=== PATIENT | female | born 1990 | race Caucasian/White ===

== ENCOUNTER 2016-11-09 16:23 | Outpatient (CLI) | payer OTHER ==
--- NOTE | 2016-11-09 17:36 | Non Stress Test Report ---
Non Stress Test Datetime Report Generated by CPN: 11/09/2016 17:36 DEMOGRAPHIC EGA NST: 35.5 INDICATION Indication for Study: Diabetes Mellitus; Ordered by Provider MONITORING Monitor Explained: Monitor Explained; Test Explained; Patient Verbalized Understanding Time on Monitor: 11/09/2016 16:40 Time off Monitor: 11/09/2016 17:21 NST Duration: 41 NST INTERVENTIONS NST Interventions: PO Hydration; Reposition Patient Physician Notified NST: C. Miguel, CNM BABY A: [id number] BABY A Movement : Present Contraction Frequency : irregular FHR Baseline : 130 Accelerations : 15X15 Decelerations : None Variability : Moderate 6-25bpm NST Review: Meets Criteria for Reactive NST NST Review and Verified By : Leti Bellavancgail RNC NST Results: Reactive NST REPORT Report Trigger: Send Report
== END 2016-11-09 17:22 | disposition home or self-care (01) ==
LOC: LC 16:23
PROVIDERS: ATTEND Specialist
PROC: 4A1HXCZ Monitoring of Products of Conception, Cardiac Rate, External Approach (ICD-10-PCS; principal; 2016-11-09)
DX: O24.419 Gestational diabetes mellitus in pregnancy, unspecified control (principal); Z3A.35 35 weeks gestation of pregnancy
CPT/HCPCS: 59025

== ENCOUNTER 2016-11-16 15:14 | Outpatient (CLI) | payer OTHER ==
--- NOTE | 2016-11-16 15:50 | Non Stress Test Report ---
Non Stress Test Datetime Report Generated by CPN: 11/16/2016 15:49 DEMOGRAPHIC EGA NST: 36.5 INDICATION Indication for Study: Decreased Movement; Diabetes Mellitus VITAL SIGNS Temperature - NST: 99.0 RESP - NST: 18 MONITORING Monitor Explained: Monitor Explained; Test Explained; Patient Verbalized Understanding Time on Monitor: 11/16/2016 15:28 Time off Monitor: 11/16/2016 15:47 NST Duration: 19 NST INTERVENTIONS NST Interventions: PO Hydration Physician Notified NST: P Wright CNM BABY A Movement : Present Contraction Frequency : denies FHR Baseline : 125 Accelerations : 15X15 Decelerations : None Variability : Moderate 6-25bpm NST Review: Meets Criteria for Reactive NST NST Review and Verified By : Linda Rojas RNC NST Results: Reactive NST REPORT Report Trigger: Send Report
== END 2016-11-16 15:49 | disposition home or self-care (01) ==
LOC: LC 15:14
PROVIDERS: ATTEND Obstetrics & Gynecology
PROC: 4A1HXCZ Monitoring of Products of Conception, Cardiac Rate, External Approach (ICD-10-PCS; principal; 2016-11-16)
DX: O36.8130 Decreased fetal movements, third trimester, not applicable or unspecified (principal); O24.419 Gestational diabetes mellitus in pregnancy, unspecified control; Z3A.36 36 weeks gestation of pregnancy
CPT/HCPCS: 59025

== ENCOUNTER 2016-12-02 07:45 | Inpatient (IN) | payer OTHER ==
[2016-12-05 13:37] LABS: ABSOLUTE EOSINOPHILS # (AUTO) 0.1 10^3/uL (0.0-0.6); ABSOLUTE LYMPHOCYTES (AUTO) 2.3 10^3/uL (0.5-4.7); ABSOLUTE MONOCYTES (AUTO) 0.7 10^3/uL (0.1-1.4); ABSOLUTE NEUT (AUTO) 7.5 10^3/uL (1.7-8.2); BASOPHILS % (AUTO) 0.1 % (0-2); EOSINOPHILS % (AUTO) 1.4 % (0-6); HEMATOCRIT 33.6 % (36.0-47.0); HEMOGLOBIN 11.7 g/dL (12.0-15.5); HGB HCT DIFFERENCE 1.5; LYMPHOCYTES % (AUTO) 21.4 % (13-45); MEAN CORPUSCULAR HEMOGLOBIN 28.3 pg (27.0-33.4); MEAN CORPUSCULAR HGB CONC 34.7 g/dL (32.0-36.0); MEAN CORPUSCULAR VOLUME 82 fl (80-97); MONOCYTES % (AUTO) 6.7 % (3-13); RED BLOOD COUNT 4.12 10^6/uL (3.72-5.28); RED CELL DISTRIBUTION WIDTH 14.1 % (11.5-14.0); SEGMENTED NEUTROPHILS % (AUTO) 70.4 % (42-78); WHITE BLOOD COUNT 10.7 10^3/uL (4.0-10.5)
[2016-12-05 13:54] LABS: APPEARANCE,URINE CLOUDY; BILIRUBIN,URINE NEGATIVE (NEGATIVE); CALCIUM OXALATE CRYSTALS,URINE MANY /HPF; GLUCOSE, URINE NEGATIVE (NEGATIVE); KETONES,URINE NEGATIVE (NEGATIVE); LEUKOCYTE ESTERASE,URINE NEGATIVE (NEGATIVE); NITRITE,URINE NEGATIVE (NEGATIVE); PROTEIN,URINE 30 mg/dL (NEGATIVE); URINE SPECIFIC GRAVITY 1.028; UROBILINOGEN,URINE NEGATIVE mg/dL (<2.0)
[2016-12-05 14:21] LABS: URINE BARBITURATES SCREEN NEGATIVE; URINE METHADONE SCREEN NEGATIVE; URINE OPIATES LOW NEGATIVE; URINE PHENCYCLIDINE SCREEN NEGATIVE
[2016-12-06] MEDS ORDERED: LIDOCAINE 0.5% INJ-PF (5 MG/ML) 50 ML SDV SUBCUT PRN (05:00)
[2016-12-06] MEDS ORDERED: LACTATED RINGERS 1000 ML IV PRN (05:00)
[2016-12-06] MEDS ORDERED: CEFAZOLIN 2 GM/D5W RTU 2 GM/50 ML RTUPB IV PRN (05:00)
[2016-12-06] MEDS ORDERED: RINGERS SOLUTION,LACTATED 1,500 ML IV PRN (05:00)
[2016-12-06] MEDS ORDERED: OXYTOCIN 10 UNIT/ML VIAL ONE (06:59)
[2016-12-06] MEDS ORDERED: EPHEDRINE SULFATE INJ 50 MG/1 ML AMPULE ONE (07:00)
[2016-12-06] MEDS ORDERED: FENTANYL CITRATE INJ/PF 100 MCG/2 ML AMPUL ONE ×2 (07:07→09:33)
[2016-12-06] MEDS ORDERED: DIPHENHYDRAMINE HCL 50 MG/ML VIAL IV PRN (07:45)
[2016-12-06] MEDS ORDERED: PROMETHAZINE HCL INJ 25 MG/1 ML VIAL IV PRN ×3 (07:45→08:52)
[2016-12-06] MEDS ORDERED: FENTANYL CITRATE INJ/PF 100 MCG/2 ML AMPUL IV PRN ×2 (07:45)
[2016-12-06] MEDS ORDERED: MORPHINE SULFATE 10 MG/ML INJ IV PRN (07:45)
[2016-12-06] MEDS ORDERED: OXYCODONE-ACETAMINOPHEN 5-325 MG TABLET PO PRN ×2 (07:45)
[2016-12-06] MEDS ORDERED: MEPERIDINE HCL/PF INJ 25 MG/1 ML DISP.SYRIN IV PRN (07:45)
[2016-12-06] MEDS ORDERED: ACETAMINOPHEN 100 ML IV PRN (08:52)
[2016-12-06] MEDS ORDERED: ACETAMINOPHEN 325 MG TABLET PO PRN (08:52)
[2016-12-06] MEDS ORDERED: OXYTOCIN/NORMAL SALINE 20 UNIT/1,000 ML RTUINJ IV PRN (08:52)
[2016-12-06] MEDS ORDERED: SIMETHICONE 80 MG TAB.CHEW PO PRN (08:52)
[2016-12-06] MEDS ORDERED: DIPH/PERTUSS(ACELL)/TETANUS VAC/PF 0.5 ML SYR (>=10YO) IM PRN (08:52)
[2016-12-06] MEDS ORDERED: RINGERS SOLUTION,LACTATED 1,000 ML IV PRN (08:52)
[2016-12-06] MEDS ORDERED: MEASLES,MUMPS&RUBELLA VACC/PF 0.5 ML VIAL SUBCUT PRN (08:52)
[2016-12-06] MEDS ORDERED: ACETAMINOPHEN 100 ML IV ONE (09:33)
[2016-12-06] MEDS ORDERED: OXYTOCIN/NORMAL SALINE 20 UNIT/1,000 ML RTUINJ ONE (09:33)
--- NOTE | 2016-12-06 09:36 | OPERATIVE REPORT E ---
Operative Report NAME: TENISHA ORTIZ : 1990 AGE: 26Y DATE OF SURGERY: 12/06/2016 ROOM: [facility] TIME: 8:54 SURGEON: GARRETT BROOKS M.D. GUITAR MAKER: OR staff. PREOPERATIVE DIAGNOSIS: Repeat via low transverse uterine incision and tubal ligation. FINDING: Viable female. Apgars 8 and 8, 8 pounds 8 ounces. COMPLICATIONS: None. ESTIMATED BLOOD LOSS: 250. SPECIMEN: Placenta. PROCEDURE: A repeat via low transverse uterine incision and tubal ligation with Filshie clip. DESCRIPTION OF PROCEDURE: The patient was taken to the OR and placed in a supine position. Her spinal had been placed. Her abdomen was prepared and draped in sterile fashion. Her bladder was drained with a Zimmerman catheter. Low transverse incision was made down to the level of the fascia, which was nicked in the midline. The fascial incision was extended bilaterally using curved Sotomayor scissors. The fascia was off the rectus muscles using sharp and blunt dissection. The rectus muscles were in the midline. Peritoneum was entered with Metzenbaum scissors without incident. Perineal incision extended superiorly and inferiorly, taking care not to injure bladder. Bladder blade placed, lower uterine segment identified, and the serosal incision was made creating a bladder flap. Low transverse uterine incision was made with a C-safe knife. The incision was extended manually. The baby was delivered with some fundal pressure. Nuchal cord x2 was reduced. The baby was delivered completely. Cord doubly clamped and cut and the infant was passed off to the cook pressure. Cord blood was obtained. Placenta was manually extracted with trailing membranes. The uterus was externalized, wrapped in moistened lap sponge. Uterine contents were wiped clean. Uterus was closed with a running, locking layer of 0 Chromic using the second layer to imbricate the first, completing a double layer closure in the uterus. The serosa was closed with a running 2-0 Chromic stitch. Tubes and ovaries were normal. Each tube was then clamped with Filshie clip at its mid isthmic portion bilaterally. Posterior cul-de-sac was irrigated and suctioned free of fluid. The uterus was replaced in the abdomen. The anterior abdominal wall and peritoneum was closed with running 2-0 Chromic stitch. Subfascial tissues were inspected for bleeding with fascias closed with a running 0 Vicryl in 2 segments. The wound was irrigated, Nella's layer was closed with 2-0 plain gut stitch and the skin closed with a running subcuticular 4-0 undyed Vicryl stitch. Mother and baby doing well. DICTATING PHYSICIAN: GARRETT BROOKS M.D. [id number] PHY#: [id number] ID: [id number] JOB#: [id number] ACCT: [id number] cc:GARRETT BROOKS M.D. >
[2016-12-06] MEDS: FENTANYL CITRATE INJ/PF 100 MCG/2 ML AMPUL IV PRN ×4 (09:41→10:32)
[2016-12-06] MEDS ORDERED: MEPERIDINE HCL/PF INJ 25 MG/1 ML DISP.SYRIN ONE (10:38)
[2016-12-06] MEDS: HYDROMORPHONE HCL INJ/PF 2 MG/ML AMPULE IV PRN ×2 (12:06→17:22)
[2016-12-06] MEDS ORDERED: PHENYLEPHRINE HCL INJ/PF 10 MG/1 ML SDV ONE (13:23)
[2016-12-06] MEDS ORDERED: ONDANSETRON HCL INJ/PF 4 MG/2 ML SDV ONE (13:23)
[2016-12-06] MEDS ORDERED: KETOROLAC TROMETHAMINE 60 MG/2 ML SDV ONE (13:23)
[2016-12-06] MEDS: PRENATAL VITAMIN W-O CA NO5/FE FUMARATE/FA CAPSULE PO SCH (14:13)
[2016-12-06] MEDS: OXYCODONE-ACETAMINOPHEN 5-325 MG TABLET PO PRN ×2 (14:14→21:00)
[2016-12-06] MEDS: DOCUSATE SODIUM 100 MG CAPSULE PO SCH ×2 (14:14→17:00)
[2016-12-06] MEDS: KETOROLAC TROMETHAMINE INJ/PF 30 MG/1 ML SDV IV SCH ×2 (14:51→21:02)
[2016-12-06 21:22] LABS: HEMATOCRIT 30.9 % (36.0-47.0); HEMOGLOBIN 10.5 g/dL (12.0-15.5); HGB HCT DIFFERENCE 0.6; MEAN CORPUSCULAR HEMOGLOBIN 28.1 pg (27.0-33.4); MEAN CORPUSCULAR VOLUME 83 fl (80-97); RED BLOOD COUNT 3.73 10^6/uL (3.72-5.28); RED CELL DISTRIBUTION WIDTH 14.1 % (11.5-14.0); WHITE BLOOD COUNT 12.7 10^3/uL (4.0-10.5)
[2016-12-06] MEDS ORDERED: RINGERS SOLUTION,LACTATED 500 ML IV ONE (22:00)
[2016-12-07] MEDS: OXYCODONE-ACETAMINOPHEN 5-325 MG TABLET PO PRN ×5 (02:51→20:11)
[2016-12-07] MEDS: IBUPROFEN 800 MG TABLET PO SCH ×4 (05:13→23:49)
[2016-12-07 06:24] LABS: HEMATOCRIT 28.4 % (36.0-47.0); HEMOGLOBIN 9.8 g/dL (12.0-15.5); MEAN CORPUSCULAR HEMOGLOBIN 28.5 pg (27.0-33.4); MEAN CORPUSCULAR HGB CONC 34.4 g/dL (32.0-36.0); MEAN CORPUSCULAR VOLUME 83 fl (80-97); RED BLOOD COUNT 3.43 10^6/uL (3.72-5.28); RED CELL DISTRIBUTION WIDTH 14.5 % (11.5-14.0); WHITE BLOOD COUNT 10.7 10^3/uL (4.0-10.5)
[2016-12-07] MEDS: DOCUSATE SODIUM 100 MG CAPSULE PO SCH ×2 (09:11→17:34)
[2016-12-07] MEDS: PRENATAL VITAMIN W-O CA NO5/FE FUMARATE/FA CAPSULE PO SCH (09:11)
--- NOTE | 2016-12-07 11:15 | PDOC PROGRESS REPORT ---
Subjective-OB Subjective: Post Delivery Day: 26 year old. Denies any needs at this time Doing well, no c/o, breast feeding, voiding, ambulating, pain under control Physical Exam (OB) Vital Signs: Temp Pulse Resp BP Pulse Ox 97.9 F 97 18 95/79 L 100 12/07/16 08:00 12/07/16 08:00 12/07/16 08:00 12/07/16 08:00 12/07/16 08:00 Intake & Output 12/06/16 12/07/16 12/08/16 06:59 06:59 06:59 Intake Total 3100 Output Total 2024 Balance 1075 Weight 128.367 kg - PIH/Pre-Eclampsia DTR's: 1 + Clonus: Negative Headache: Absent Epigastric Pain: No Visual Changes: No - Dressing Removed: No - Opsite Incision: Dressing Closure Type: Op site - Lochia Lochia Amount: Small 10-25 ml Lochia Color: Rubra/Red - Abdomen Description: Tender, Soft Hernia Present: No Fundal Description: Firm, Non-Midline Fundal Height: u/u - u/2 Objective-Diagnostic Laboratory: 12/07/16 05:48 12/06/16 12/07/16 21:05 05:48 WBC 12.7 H 10.7 H RBC 3.73 3.43 L Hgb 10.5 L 9.8 L Hct 30.9 L 28.4 L MCV 83 83 MCH 28.1 28.5 MCHC 34.0 34.4 RDW 14.1 H 14.5 H Plt Count 196 184 Assessment and Plan(PN) - Assessment and Plan (1) Anemia Qualifiers: Anemia type: iron deficiency Is this a current diagnosis for this admission?: Yes (2) Delivery by section of full-term infant Is this a current diagnosis for this admission?: Yes - Time Spent with Patient Time with patient: Less than 15 minutes - Disposition Anticipated Discharge: Home Within: within 24 hours
[2016-12-07] MEDS ORDERED: MORPHINE SULFATE 10 MG/ML INJ IM ONE (22:00)
[2016-12-08] MEDS: OXYCODONE-ACETAMINOPHEN 5-325 MG TABLET PO PRN ×3 (00:31→09:31)
[2016-12-08] MEDS: IBUPROFEN 800 MG TABLET PO SCH ×2 (05:09→11:40)
[2016-12-08 06:51] LABS: HEMATOCRIT 26.4 % (36.0-47.0); HEMOGLOBIN 9.3 g/dL (12.0-15.5); HGB HCT DIFFERENCE 1.5; MEAN CORPUSCULAR HEMOGLOBIN 28.7 pg (27.0-33.4); MEAN CORPUSCULAR HGB CONC 35.1 g/dL (32.0-36.0); MEAN CORPUSCULAR VOLUME 82 fl (80-97); RED BLOOD COUNT 3.23 10^6/uL (3.72-5.28); RED CELL DISTRIBUTION WIDTH 14.3 % (11.5-14.0); WHITE BLOOD COUNT 9.9 10^3/uL (4.0-10.5)
[2016-12-08] MEDS: PRENATAL VITAMIN W-O CA NO5/FE FUMARATE/FA CAPSULE PO SCH (09:30)
[2016-12-08] MEDS: DOCUSATE SODIUM 100 MG CAPSULE PO SCH (09:30)
--- NOTE | 2016-12-08 10:08 | PDOC DISCHARGE SUMMARY ---
Final Diagnosis Discharge Date: 12/08/16 - Final Diagnosis (1) Anemia Is this a current diagnosis for this admission?: Yes (2) Delivery by section of full-term Is this a current diagnosis for this admission?: Yes (3) GDM, class A1 Is this a current diagnosis for this admission?: Yes (4) History of depression Is this a current diagnosis for this admission?: Yes Discharge Data - Discharge Medication Home Medications: Pnv No.122/Iron/Folic Acid [ Multi Tablet] 1 tab PO DAILY 11/09/16 Docusate Sodium [Colace 100 mg Capsule] 100 mg PO BID #60 capsule 12/08/16 Ferrous Sulfate 325 mg PO BID #60 tablet 12/08/16 Ibuprofen [Motrin 800 mg Tablet] 800 mg PO Q6 #60 tablet 12/08/16 Oxycodone HCl/Acetaminophen [Percocet 5-325 mg Tablet] 2 tab PO Q4HP PRN #30 tablet 12/08/16 Gestational Age: 39 Reason(s) for Admission: Ceasarean Section-Repeat Procedures: NST Intrapartum Procedure(s): : Low Cervical, Transverse, Tubal Ligation - [place] Data Baby 1 Male at 1 minute: 8 at 5 minutes: 8 Weight: 3.856 kg Home with Mother: Yes Complications: No - Diagnosis Test Laboratory: Temp Pulse Resp BP Pulse Ox 97.6 F 76 16 108/55 L 99 12/08/16 07:56 12/08/16 07:56 12/08/16 07:56 12/08/16 07:56 12/08/16 07:56 12/05/16 12/05/16 12/06/16 12:30 12:35 21:05 RBC 4.12 3.73 Hgb 11.7 L 10.5 L Hct 33.6 L 30.9 L Urine Opiates Screen NEGATIVE 12/07/16 12/08/16 05:48 06:27 RBC 3.43 L 3.23 L Hgb 9.8 L 9.3 L Hct 28.4 L 26.4 L Urine Opiates Screen - Discharge information/Instructions Discharge Activity: Activity As Tolerated, No Driving, No Lifting Over 10 Pounds , Pelvic Rest, No tub bath Discharge Diet: Regular Disposition: HOME, SELF-CARE Follow up with: [facility] in: 1, Weeks
[2016-12-08 10:22] VITALS: BP 115/60
== END 2016-12-08 13:59 | disposition home or self-care (01) | DRG 766 ==
LOC: 2S 12-06 05:10
PROVIDERS: ADMIT Obstetrics & Gynecology; ATTEND Obstetrics & Gynecology
PROC: 0UL70CZ Occlusion of Bilateral Fallopian Tubes with Extraluminal Device, Open Approach (ICD-10-PCS; 2016-12-06)
PROC: 4A1HXCZ Monitoring of Products of Conception, Cardiac Rate, External Approach (ICD-10-PCS; 2016-12-06)
PROC: 10D00Z1 Extraction of Products of Conception, Low, Open Approach (ICD-10-PCS; principal; 2016-12-06 07:30)
PROC: 3E0234Z Introduction of Serum, Toxoid and Vaccine into Muscle, Percutaneous Approach (ICD-10-PCS; 2016-12-08)
DX: O34.211 Maternal care for low transverse scar from previous cesarean delivery (principal); O24.420 Gestational diabetes mellitus in childbirth, diet controlled; O69.81X0 Labor and delivery complicated by cord around neck, without compression, not applicable or unspecified; O99.02 Anemia complicating childbirth; D50.9 Iron deficiency anemia, unspecified; Z30.2 Encounter for sterilization; Z23 Encounter for immunization; Z3A.39 39 weeks gestation of pregnancy; Z37.0 Single live birth
CPT/HCPCS: 1961; 36415; 59025; 80307; 81001; 82962; 85025; 85027; 86850; 86900; 86901; 90715; 94799; J0131; J1170; J1885; J2175; J2270; J2370; J2405; J2590; J3010; J3490; J7120